=== PATIENT | male | born 1945 | race Caucasian/White ===

== ENCOUNTER 2017-06-08 08:39 | Inpatient (IN) | payer MEDICARE, MEDICAID ==
--- NOTE | 2017-06-08 09:40 | EDM.PDOC ---
ED HPI GENERAL MEDICAL PROBLEM - General Chief Complaint: Fever Stated Complaint: SHORT OF BREATH, LOW O2 SATS Time Seen by Provider: 06/08/17 09:20 Source of Information: Reports: Patient, EMS Notes Reviewed, Retirement Records History Limitations: Reports: No Limitations - History of Present Illness INITIAL COMMENTS - FREE TEXT/NARRATIVE: PATIENT IS A 72-YEAR-OLD GENTLEMAN WHO PRESENTS TO THE EMERGENCY DEPARTMENT THIS MORNING FROM NURSING FACILITY VIA EMS FOR COMPLAINT OF FEVER, HYPOXIA, AND ALTERED MENTAL STATUS. SYMPTOMS SAID TO HAVE BEGUN THIS MORNING, AND PATIENT FOUND TO HAVE OXYGEN SATURATION OF 83% ON 3 L NASAL CANNULA. Patient was found to have a fever of 100.3 at nursing facility. Patient denies chest pain, abdomen pain, nausea, vomiting, diarrhea, or headache. Has intermittent episodes of confusion, but then is able to reorient and comprehends person, place and time. Onset: Today Duration: Hour(s): Quality: Reports: Other (DENIES PAIN) Improves with: Reports: None Worsens with: Reports: None Associated Symptoms: Reports: Fever/Chills, Other (ALTERED MENTAL STATUS) - Related Data Allergies Allergy/AdvReac Type Severity Reaction Status Date / Time fluticasone propionate Allergy unknown Verified 01/04/16 16:47 [From Advair Diskus] rosuvastatin calcium Allergy unknown Verified 01/04/16 16:47 [From Crestor] salmeterol xinafoate Allergy unknown Verified 01/04/16 16:47 [From Advair Diskus] Home Meds: Home Meds Acetaminophen [Tylenol Extra Strength] 1,000 mg PO BID 05/28/13 [History] Albuterol/Ipratropium [DuoNeb 3.0-0.5 MG/3 ML] 3 ml INH BID 05/28/13 [History] Calcium/Vit B12/FA/Pyridoxine [Folic Acid-Vit B6-Vit B12 Tab] 1 each PO DAILY [History] Carvedilol [Coreg] 12.5 mg PO BID 05/28/13 [History] Cholecalciferol (Vitamin D3) [Vitamin D3] 1,000 unit PO DAILY 05/28/13 [History] Cinnamon Bark [Cinnamon] 1,000 mg PO ASDIRECTED 05/28/13 [History] Docusate Sodium [Colace] 100 mg PO BID 05/28/13 [History] Fluticasone Furoate [Veramyst] 2 spray NS DAILY 05/28/13 [History] Furosemide [Lasix] 20 mg PO DAILY 05/28/13 [History] Gabapentin [Neurontin] 300 mg PO TID 05/28/13 [History] Insulin Glarg,Human.Rec.Analog [Lantus] 90 unit SQ BEDTIME 05/28/13 [History] Isosorbide Dinitrate [Isordil] 10 mg PO BID 05/28/13 [History] Lisinopril 2.5 mg PO DAILY 05/28/13 [History] Magnesium Oxide 400 mg PO DAILY 05/28/13 [History] Nitroglycerin [Nitrostat] 0.4 mg SL ASDIRECTED PRN 05/28/13 [History] Omeprazole [Prilosec] 20 mg PO DAILY 05/28/13 [History] Sertraline [Zoloft] 200 mg PO DAILY 05/28/13 [History] SitaGLIPtin [Januvia] 100 mg PO DAILY 05/28/13 [History] traMADol [Ultram] 50 mg PO BID PRN 05/28/13 [History] [place]-3 Fatty Acids/Fish Oil [Cvs Fish Oil 1,000 mg Softgel] 2 tab PO BID [History] metFORMIN [Glucophage] 1,000 mg PO BIDMEALS 01/05/16 [History] Past Medical History HEENT History: Reports: Sinusitis Cardiovascular History: Reports: CAD, Heart Failure, High Cholesterol, Hypertension Respiratory History: Reports: None Genitourinary History: Reports: Other (See Below) Other Genitourinary History: diabetic neuropathy Musculoskeletal History: Reports: Arthritis Neurological History: Reports: Neuropathy, Diabetic Psychiatric History: Reports: Depression Endocrine/Metabolic History: Reports: Diabetes, Type II, Obesity/BMI 30+ Hematologic History: Reports: Anemia, Anticoagulation Therapy - Past Surgical History HEENT Surgical History: Reports: None Cardiovascular Surgical History: Reports: None Respiratory Surgical History: Reports: None Male Surgical History: Reports: None Neurological Surgical History: Reports: None Social & Family History - Family History Family Medical History: Noncontributory HEENT: Reports: None Cardiac: Reports: None Respiratory: Reports: None GI: Reports: None : Reports: None OBGYN: Reports: None Musculoskeletal: Reports: None Neurological: Reports: None Psychiatric: Reports: None Endocrine/Metabolic: Reports: None Hematologic: Reports: None Immunologic: Reports: None Dermatologic: Reports: None Oncologic: Reports: None - Tobacco Use Smoking Status *Q: Former Smoker Years of Tobacco use: 43 Packs/Tins Daily: 1.5 - Alcohol Use Days Per Week of Alcohol Use: 0 - Recreational Drug Use Recreational Drug Use: No ED ROS GENERAL - Review of Systems Review Of Systems: ROS reveals no pertinent complaints other than HPI. Constitutional: Reports: Fever HEENT: Reports: No Symptoms Respiratory: Reports: Cough Cardiovascular: Reports: No Symptoms Endocrine: Reports: No Symptoms GI/Abdominal: Reports: No Symptoms : Reports: No Symptoms Musculoskeletal: Reports: No Symptoms Skin: Reports: No Symptoms Neurological: Reports: Confusion Psychiatric: Reports: No Symptoms Hematologic/Lymphatic: Reports: No Symptoms Immunologic: Reports: No Symptoms ED EXAM, GENERAL - Physical Exam Exam: See Below Exam Limited By: Altered Mental Status General Appearance: Alert, WD/WN, No Apparent Distress Eye Exam: Bilateral Eye: Normal Inspection Nose: Normal Inspection, Normal Mucosa, No Blood Throat/Mouth: Normal Inspection, Normal Oropharynx, No Airway Compromise Head: Atraumatic, Normocephalic Neck: Normal Inspection, Supple Respiratory/Chest: No Respiratory Distress, Rales (Bibasilar) Cardiovascular: Regular Rate, Rhythm, No Murmur GI/Abdominal: Normal Bowel Sounds, Soft, Non-Tender, No Abnormal Bruit Back Exam: Normal Inspection. No: CVA Tenderness (L), CVA Tenderness (R) Extremities: Normal Inspection, No Pedal Edema Neurological: Confused Psychiatric: Normal Affect, Normal Mood Skin Exam: Warm, Dry, Intact, Normal Color, No Rash Lymphatic: No Adenopathy EKG INTERPRETATION EKG Date: 06/08/17 Time: 09:15 Rhythm: NSR Rate (Beats/Min): 89 [place]: Normal P-Wave: Present QRS: Normal ST-T: Other (Nonspecific) Comparison: Change From Previous EKG Course - Orders/Labs/Meds Orders: Active Orders 24 hr Category Date Time Status EKG Documentation Completion [RC] ASDIRECTED Care 06/08/17 09:21 Ordered Peripheral IV Care [RC] . DIRECTED Care 06/08/17 09:22 Ordered Chest 2V [CR] Stat Exams 06/08/17 09:20 Ordered CBC WITH AUTO DIFF [HEME] Stat Lab 06/08/17 09:20 Ordered COMPREHENSIVE METABOLIC PN,CMP [CHEM] Stat Lab 06/08/17 09:20 Ordered INFLUENZA A+B AG SCREEN [RM] Stat Lab 06/08/17 09:22 Ordered MAGNESIUM [CHEM] Stat Lab 06/08/17 09:20 Ordered TROPONIN I [CHEM] Stat Lab 06/08/17 09:20 Ordered UA W/MICROSCOPIC [URIN] Stat Lab 06/08/17 09:20 Ordered Sodium Chloride 0.9% [Syrex Flush] Med 06/08/17 09:22 Ordered 5 ml FLUSH Q8HR PRN Peripheral IV Insertion Adult [OM.PC] Routine Oth 06/08/17 09:22 Ordered EKG 12 Lead [EK] Routine Ther 06/08/17 09:20 Ordered Medication Orders Sodium Chloride (Syrex Flush) 5 ml FLUSH Q8HR PRN PRN Reason: Keep Vein Open Meds: Medications Generic Name Dose Route Start Last Admin Trade Name Freq PRN Reason Stop Dose Admin Sodium Chloride 5 ml 06/08/17 09:22 Syrex Flush FLUSH Q8HR PRN Keep Vein Open - Radiology Interpretation Free Text/Narrative:: Chest x-ray shows Right basilar infiltrate - Re-Assessments/Exams Free Text/Narrative Re-Assessment/Exam: 06/08/17 10:30 Patient patient afebrile, nontoxic appearing, intermittently confused, vital signs stable. Case discussed with Dr. Herrera and patient will be admitted and she will follow. Patient given initial dose of Levaquin for pneumonia. Elevated troponin has been addressed. Departure - Departure Time of Disposition: 10:31 Disposition: Admitted As Inpatient 64 Condition: Fair Clinical Impression: Elevated troponin, Hypoxia Pneumonia Qualifiers: Pneumonia type: due to unspecified organism Laterality: right Lung location: lower lobe of lung Qualified Code(s): J18.1 - Lobar pneumonia, unspecified organism - Discharge Information Referrals: Christy Brink MD [Primary Care Provider] - Forms: ED Department Discharge - My Orders Last 24 Hours: My Active Orders 06/08/17 09:20 Chest 2V [CR] Stat CBC WITH AUTO DIFF [HEME] Stat COMPREHENSIVE METABOLIC PN,CMP [CHEM] Stat MAGNESIUM [CHEM] Stat TROPONIN I [CHEM] Stat UA W/MICROSCOPIC [URIN] Stat EKG 12 Lead [EK] Routine 06/08/17 09:21 EKG Documentation Completion [RC] ASDIRECTED 06/08/17 09:22 Peripheral IV Care [RC] . DIRECTED INFLUENZA A+B AG SCREEN [RM] Stat Sodium Chloride 0.9% [Syrex Flush] 5 ml FLUSH Q8HR PRN Peripheral IV Insertion Adult [OM.PC] Routine - Assessment/Plan Last 24 Hours: My Active Orders 06/08/17 09:20 Chest 2V [CR] Stat CBC WITH AUTO DIFF [HEME] Stat COMPREHENSIVE METABOLIC PN,CMP [CHEM] Stat MAGNESIUM [CHEM] Stat TROPONIN I [CHEM] Stat UA W/MICROSCOPIC [URIN] Stat EKG 12 Lead [EK] Routine 06/08/17 09:21 EKG Documentation Completion [RC] ASDIRECTED 06/08/17 09:22 Peripheral IV Care [RC] . DIRECTED INFLUENZA A+B AG SCREEN [RM] Stat Sodium Chloride 0.9% [Syrex Flush] 5 ml FLUSH Q8HR PRN Peripheral IV Insertion Adult [OM.PC] Routine Assessment:: Pneumonia Plan: Admitted inpatient to Dr. Eduar narayan
[2017-06-08] MEDS ORDERED: Carvedilol 6.25 MG Tab PO ONE (10:11)
[2017-06-08] MEDS: Sodium Chloride 0.9% 5 ML Syringe FLUSH PRN (10:20)
[2017-06-08] MEDS ORDERED: Levofloxacin/Dextrose 5%-Water 500 MG in Premix Bag 1 BAG IV ONE (10:26)
[2017-06-08] MEDS ORDERED: Albuterol/Ipratropium 3.0-0.5 MG/3 ML Neb Soln INH PRN (13:13)
[2017-06-08] MEDS ORDERED: Nystatin Crm 15 GM Tube TOP PRN (13:13)
[2017-06-08] MEDS ORDERED: Nitroglycerin 0.4 MG Tab.SL SL PRN (13:13)
[2017-06-08] MEDS ORDERED: Docusate Sodium 100 MG Cap PO PRN (13:13)
[2017-06-08] MEDS ORDERED: Polyethylene Glycol 3350 Powder 17 GM Packet PO PRN (13:13)
[2017-06-08] MEDS ORDERED: traMADol 50 MG Tab PO PRN (13:13)
[2017-06-08] MEDS ORDERED: Nystatin Topical Powder 15 GM Bottle TOP PRN (13:45)
[2017-06-08] MEDS ORDERED: Saliva Substitute Oral Spray 120 ML Bottle MUCMEM PRN (13:45)
[2017-06-08] MEDS ORDERED: Trolamine Salicylate/Aloe Vera 10% Crm 85 GM Tube TOP PRN (13:45)
[2017-06-08] MEDS ORDERED: Sodium Chloride 0.9% 1,000 ML IV SCH ×2 (14:00→14:15)
[2017-06-08] MEDS: Gabapentin 300 MG Cap PO SCH ×2 (14:01→21:38)
[2017-06-08] MEDS: Tamsulosin 0.4 MG Cap.ER PO SCH (14:01)
[2017-06-08] MEDS: Aspirin 81 MG Tab.Chew PO SCH (14:02)
[2017-06-08] MEDS: Finasteride 5 MG Tab PO SCH (14:02)
--- NOTE | 2017-06-08 17:14 | PCM.HP ---
H&P History of Present Illness - General Date of Service: 06/08/17 Admit Problem/Dx: Admission Diagnosis/Problem Admission Diagnosis/Problem Pneumonia Source of Information: Patient, [facility] Records, Old Records, Provider (ED Provider Benny Parish PA-C), Other (TREVOR Campos) - History of Present Illness Initial Comments - Free Text/Narative: Mr. Elias is a resident of [facility] in [place], [place], and was reportedly in his usual state of health until 1-2 days ago when he developed a cough. On the morning of admission, I was called by facility nursing staff reporting that he had oxygen saturations in the low 80s despite an increase in his baseline oxygen of 2L to 4L. He didn't improve with nebulizer treatment and continued to be hypoxic and with increased work of breathing. He was transported by EMS to the [facility] ED where he was evaluated and noted to have 6L oxygen requirement in order to maintain saturations above 90%. Workup was notable for neutrophilia, elevated troponin at 0.24, CXR showing early R base pneumonia, and EKG without acute changes. Upon arrival on the floor, he reports feeling mildly short of breath but with better breathing than earlier. He states he is quite tired, but denies any other complaints including any chest pain or palpitations. He is unsure if his cough has been productive. He believes he has been eating and drinking without difficulty. History limited by patient's mental status. - Related Data Allergies/Adverse Reactions: Allergies Allergy/AdvReac Type Severity Reaction Status Date / Time fluticasone propionate Allergy unknown Verified 06/08/17 10:38 [From Advair Diskus] rosuvastatin calcium Allergy unknown Verified 06/08/17 10:38 [From Crestor] salmeterol xinafoate Allergy unknown Verified 06/08/17 10:38 [From Advair Diskus] Ycrpnkt-Wyr-Agr Reductase Allergy Other Verified 06/08/17 10:39 Inhibitor Home Medications: Home Meds Acetaminophen [Tylenol Extra Strength] 1,000 mg PO BID 05/28/13 [History] Albuterol/Ipratropium [DuoNeb 3.0-0.5 MG/3 ML] 3 ml INH BID PRN 05/28/13 [ History] Carvedilol [Coreg] 12.5 mg PO BID 05/28/13 [History] Docusate Sodium [Colace] 100 mg PO BID PRN 05/28/13 [History] Furosemide [Lasix] 40 mg PO DAILY 05/28/13 [History] Gabapentin [Neurontin] 600 mg PO TID 05/28/13 [History] Insulin Glarg,Human.Rec.Analog [Lantus] 52 unit SQ BEDTIME 05/28/13 [History] Nitroglycerin [Nitrostat] 0.4 mg SL ASDIRECTED PRN 05/28/13 [History] Omeprazole [Prilosec] 20 mg PO DAILY 05/28/13 [History] Sertraline [Zoloft] 150 mg PO BEDTIME 05/28/13 [History] traMADol [Ultram] 50 mg PO BID PRN 05/28/13 [History] [place]-3 Fatty Acids/Fish Oil [Cvs Fish Oil 1,000 mg Softgel] 1 tab PO DAILY [History] metFORMIN [Glucophage] 1,000 mg PO BIDMEALS 01/05/16 [History] Aspirin 81 mg PO DAILY 06/08/17 [History] Finasteride [Finasteride] 5 mg PO DAILY 06/08/17 [History] Insulin Aspart [NovoLOG] 13 unit SUBCUT WITHMEALSANDBED 06/08/17 [History] Iron Ps Cmplx/Vit B12/Fa [Poly-Iron 150 Forte] 1 each PO DAILY 06/08/17 [History ] Menthol [Cough Drops] 2.7 mg MM BID PRN 06/08/17 [History] Multivits,Ca,Minerals/Iron/FA [Thera-Tabs M Cap[place]] 1 each PO DAILY 06/08/17 [ History] Nystatin 1 each TOP BID PRN 06/08/17 [History] Nystatin [Nystatin Crm] 1 applic TOP BID PRN 06/08/17 [History] Polyethylene Glycol 3350 [MiraLAX] 17 gm PO DAILY PRN 06/08/17 [History] Saliva Stimulant Agents Comb.4 [Dry Mouth] 2 spray PO BID PRN 06/08/17 [History] Simethicone 160 mg PO TIDPC 06/08/17 [History] Tamsulosin [Tamsulosin 24 Hr] 0.4 mg PO DAILY 06/08/17 [History] Trolamine Salicylate/Aloe Vera [Aspercreme 10% Cream] 1 applic TOP BID PRN 06/08 [History] Past Medical History HEENT History: Reports: Sinusitis Cardiovascular History: Reports: CAD, Heart Failure, High Cholesterol, Hypertension Respiratory History: Reports: None Genitourinary History: Reports: Other (See Below) Other Genitourinary History: diabetic neuropathy Musculoskeletal History: Reports: Arthritis Neurological History: Reports: Neuropathy, Diabetic Psychiatric History: Reports: Depression Endocrine/Metabolic History: Reports: Diabetes, Type II, Obesity/BMI 30+ Hematologic History: Reports: Anemia, Anticoagulation Therapy Dermatologic History: Reports: Other (See Below) Other Dermatologic History: dry patches on elbows - Past Surgical History HEENT Surgical History: Reports: None Cardiovascular Surgical History: Reports: None Respiratory Surgical History: Reports: None Male Surgical History: Reports: None Neurological Surgical History: Reports: None Social & Family History - Family History Family Medical History: Noncontributory HEENT: Reports: None Cardiac: Reports: None Respiratory: Reports: None GI: Reports: None : Reports: None OBGYN: Reports: None Musculoskeletal: Reports: None Neurological: Reports: None Psychiatric: Reports: None Endocrine/Metabolic: Reports: None Hematologic: Reports: None Immunologic: Reports: None Dermatologic: Reports: None Oncologic: Reports: None - Tobacco Use Smoking Status *Q: Former Smoker Years of Tobacco use: 43 Packs/Tins Daily: 1.5 Used Tobacco, but Quit: Yes Month Tobacco Last Used: unable to obtain Second Hand Smoke Exposure: No - Caffeine Use Caffeine Use: Reports: Soda - Alcohol Use Days Per Week of Alcohol Use: 0 - Recreational Drug Use Recreational Drug Use: No H&P Review of Systems - Review of Systems: Review Of Systems: See Below Free Text/Narrative: Limited by patient's mental status and memory. General: Reports: Fever, Fatigue. Denies: Decreased Appetite HEENT: Denies: Rhinitis, Sore Throat Pulmonary: Reports: Shortness of Breath, Cough Cardiovascular: Denies: Chest Pain, Palpitations Gastrointestinal: Denies: Abdominal Pain, Constipation, Diarrhea Genitourinary: Denies: Dysuria Musculoskeletal: Reports: No Symptoms Skin: Denies: Rash Psychiatric: Reports: Confusion Neurological: Denies: Headache Hematologic/Lymphatic: Reports: Easy Bleeding, Easy Bruising Exam - Exam Exam: See Below - Vital Signs Vital Signs: Last Vital Signs Temp 37.4 C 06/08/17 14:14 Pulse 82 06/08/17 14:17 Resp 24 H 06/08/17 14:14 BP 148/67 H 06/08/17 14:14 Pulse Ox 92 L 06/08/17 16:00 Weight: 104.508 kg - Exam Physical Exam Comments:: GENERAL: Elderly male lying in hospital bed with mild tachypnea, but no other acute distress. HEENT: Normocephalic, atraumatic. Conjunctiva clear, pupils equal round and reactive to light, extraocular movements intact. Nares patent without discharge. Mucous membranes slightly dry, posterior pharynx unremarkable. NECK: Supple, no masses. CV: Regular rate and rhythm, no murmurs, rubs, or gallops. 2+ radial pulses. PULMONARY: Mild tachypnea, R base with rhonchi, mild diffuse expiratory wheezes , no rales. ABDOMEN: Positive bowel sounds, soft, nontender, nondistended. EXTREMITIES: No edema, cyanosis, or clubbing. MUSCULOSKELETAL: Moves all extremities well. NEUROLOGICAL: No obvious deficits. DERMATOLOGIC: No rashes or suspicious lesions in exposed areas. PSYCHIATRIC: Alert, oriented to person but not place or time, mildly confused intermittently during interview. - Patient Data Lab Results Last 24 hrs: Laboratory Results - last 24 hr 06/08/17 Range/Units 15:10 Troponin I 0.36 H* (0.00-0.070) ng/mL Result Diagrams: 06/08/17 08:55 06/08/17 08:55 EKG INTERPRETATION EKG Interpretation Comments: NSR with low voltage, normal intervals, no ST-segment changes on my independent interpretation. *Q Meaningful Use (ADM) - VTE *Q VTE Criteria *Q: - Stroke *Q Stroke Criteria *Q: - AMI *Q AMI Criteria *Q: Problem List Initiated/Reviewed/Updated: Yes Orders Last 24hrs: Active Orders 24 hr Category Date Time Status Blood Glucose Check, Bedside [RC] QIDACANDBED Care 06/08/17 13:11 Active Height and Weight [RC] 0700 Care 06/08/17 12:19 Active Intake and Output [RC] 1400,2200,0600 Care 06/08/17 12:23 Active Pneumonia Education [RC] Click to Edit Care 06/08/17 12:21 Active Pulse Oximetry [RC] 0300,0700,1100,1500,1900,2300 Care 06/08/17 12:23 Active Up With Assistance [RC] ASDIRECTED Care 06/08/17 12:19 Active Heart Healthy Diet [DIET] Diet 06/08/17 Lunch Active BASIC METABOLIC PANEL,BMP [CHEM] AM Lab 06/09/17 05:11 Ordered CBC WITH AUTO DIFF [HEME] AM Lab 06/09/17 05:11 Ordered CULTURE SPUTUM + SMEAR [RM] Urgent Lab 06/08/17 12:19 Ordered TROPONIN I [CHEM] Timed Lab 06/08/17 21:00 Ordered Acetaminophen [Tylenol Extra Strength] Med 06/08/17 21:00 Active 1,000 mg PO BID Albuterol/Ipratropium [DuoNeb 3.0-0.5 MG/3 ML] Med 06/08/17 13:13 Active 3 ml INH Q4HRRT PRN Aspirin Med 06/08/17 13:15 Active 81 mg PO DAILY Carboxymethylcellulose/Lytes [Francisco-Stir Oral [place]] Med 06/08/17 13:45 Active 0 ml MUCMEM BID PRN Carvedilol [Coreg] Med 06/08/17 21:00 Active 12.5 mg PO BID Docusate Sodium [Colace] Med 06/08/17 13:13 Active 100 mg PO BID PRN FA/Lycopene/Lut/MV,Ca,Iron,Min [Centrum] Med 06/09/17 09:00 Active 1 tab PO DAILY Finasteride [Proscar] Med 06/08/17 13:15 Active 5 mg PO DAILY Furosemide [Lasix] Med 06/09/17 09:00 Active 40 mg PO DAILY Gabapentin [Neurontin] Med 06/08/17 14:00 Active 600 mg PO TID Insulin Aspart [NovoLOG] Med 06/08/17 18:00 Active See Protocol SUBCUT WITHMEALSANDBED Insulin Detemir [Levemir] Med 06/08/17 21:00 Active 52 unit SUBCUT BEDTIME Iron Aspgly&PS/B12/C/Ca/FA/Suc [Niferex-150 Forte] Med 06/09/17 09:00 Active 1 cap PO DAILY Levofloxacin/Dextrose 5%-Water [Levaquin in D5W 500 MG/ Med 06/09/17 11:00 Active 100 ML] 500 mg Premix Bag 1 bag IV Q24H Nitroglycerin [Nitrostat] Med 06/08/17 13:13 Active 0.4 mg SL ASDIRECTED PRN Nystatin [Nystatin Crm] Med 06/08/17 13:13 Active 0 gm TOP BID PRN Nystatin [Nystop] Med 06/08/17 13:45 Active 0 gm TOP BID PRN Omeprazole Med 06/09/17 07:30 Active 20 mg PO ACBREAKFAST Polyethylene Glycol 3350 [MiraLAX] Med 06/08/17 13:13 Active 17 gm PO DAILY PRN Sertraline [Zoloft] Med 06/09/17 21:00 Active 150 mg PO BEDTIME Simethicone Med 06/08/17 19:00 Active 160 mg PO TIDPC Sodium Chloride 0.9% [Normal Saline] 1,000 ml Med 06/08/17 14:15 Active IV ASDIRECTED Tamsulosin [Flomax] Med 06/08/17 13:15 Active 0.4 mg PO DAILY Trolamine Salicylate/Aloe Vera [Aspercreme 10%] Med 06/08/17 13:45 Active 0 gm TOP BID PRN traMADol [Ultram] Med 06/08/17 13:13 Active 50 mg PO BID PRN Medication Orders Acetaminophen (Tylenol Extra Strength) 1,000 mg PO BID [facility] Albuterol/Ipratropium (Duoneb 3.0-0.5 Mg/3 Ml) 3 ml INH Q4HRRT PRN PRN Reason: Constipation Last Admin: 06/08/17 14:05 Dose: 3 ml Aspirin (Aspirin) 81 mg PO DAILY [facility] Last Admin: 06/08/17 14:02 Dose: 81 mg Carvedilol (Coreg) 12.5 mg PO BID [facility] Docusate Sodium (Colace) 100 mg PO BID PRN PRN Reason: Constipation Finasteride (Proscar) 5 mg PO DAILY [facility] Last Admin: 06/08/17 14:02 Dose: 5 mg Furosemide (Lasix) 40 mg PO DAILY [facility] Gabapentin (Neurontin) 600 mg PO TID [facility] Last Admin: 06/08/17 14:01 Dose: 600 mg Levofloxacin/Dextrose 500 mg/ (Premix) 100 mls @ 100 mls/hr IV Q24H [facility] Sodium Chloride (Normal Saline) 1,000 mls @ 125 mls/hr IV ASDIRECTED [facility] Last Admin: 06/08/17 14:21 Dose: 125 mls/hr Insulin Aspart (Novolog) 0 unit SUBCUT WITHMEALSANDBED N[facility]SA PRN Reason: Protocol Insulin Detemir (Levemir) 52 unit SUBCUT BEDTIME [facility] Multivitamins/Minerals (Centrum) 1 tab PO DAILY [facility] Nitroglycerin (Nitrostat) 0.4 mg SL ASDIRECTED PRN PRN Reason: Chest Pain Nystatin (Nystatin Crm) 0 gm TOP BID PRN PRN Reason: Rash Nystatin (Nystop) 0 gm TOP BID PRN PRN Reason: RASH Last Admin: 06/08/17 13:53 Dose: 1 applic Omeprazole (Omeprazole) 20 mg PO ACBREAKFAST [facility] Polyethylene Glycol (Miralax) 17 gm PO DAILY PRN PRN Reason: Constipation Polysaccharide Iron Compl/Vitamins (Niferex-150 Forte) 1 cap PO DAILY [facility] Saliva Substitute (Francisco-Stir Oral [place]) 0 ml MUCMEM BID PRN PRN Reason: dry mouth Sertraline HCl (Zoloft) 150 mg PO BEDTIME [facility] Simethicone (Simethicone) 160 mg PO TIDPC [facility] Sodium Chloride (Syrex Flush) 5 ml FLUSH Q8HR PRN PRN Reason: Keep Vein Open Last Admin: 06/08/17 10:20 Dose: 5 ml Tamsulosin HCl (Flomax) 0.4 mg PO DAILY [facility] Last Admin: 06/08/17 14:01 Dose: 0.4 mg Tramadol HCl (Ultram) 50 mg PO BID PRN PRN Reason: moderate pain Trolamine Salicylate (Aspercreme 10%) 0 gm TOP BID PRN PRN Reason: PAIN Last Admin: 06/08/17 13:57 Dose: 1 applic Assessment/Plan Comment:: Mr. Elias is a 72yoM with history notable for un-revascularized CAD, HFrEF, pHTN, HTN, chronic hypoxic respiratory failure, and chronic thrombocytopenia with 1-2 days of respiratory symptoms with recent worsening oxygenation. ED work -up notable for 6L oxygen requirement in order to maintain saturations above 90% , neutrophilia, elevated troponin at 0.24, CXR showing early R base pneumonia, and EKG without acute changes. Hospitalization problems: # Acute on chronic hypoxic respiratory failure # Pneumonia, health-care associated # Neutrophilia # Elevated troponin # Hypomagnesiumemia # Coronary artery disease, un-revascularized # Ischemic cardiomyopathy # Heart failure with reduced ejection fraction: 12/2016 echo with EF 40-45% and regional wall motion abnormalities suggestive of prior VA. # Pulmonary hypertension # Hypertension # Chronic thrombocytopenia Acute on chronic hypoxic respiratory failure likely secondary to pneumonia. Elevated troponin is likely multifactorial secondary to demand ischemia in setting of acute infection as well as un-revascularized CAD, HFrEF, and pHTN. There is extensive prior documentation from PCP, cardiology, and prior hospitalizations regarding his refusal of revascularization due to bleeding concerns related to his chronic thrombocytopenia; He states that he wouldn't want any procedures completed and per nursing, POA also concurred with this. Initial BP elevated, but improved on recheck after receiving his morning carvedilol. - Oxygen to maintain saturations >90% - DuoNebs q4h prn wheezing - Levofloxacin given health-care associated status - Trend troponin q6h - Cardiac monitoring - Magnesium replacement and recheck tomorrow - Continue outpatient ASA, furosemide, and carvedilol - Consider initiation of ACEI given ischemic cardiomyopathy Other chronic conditions: # GERD: Omeprazole. # CKD, stage 3: Stable. # BPH: Flomax, Proscar. # Iron deficiency anemia: Stable. Fe. # DMT2: Hold outpatient metformin. Lantus. Insulin sliding scale with meals and bedtime. # OA: Tylenol, tramadol, topical trolamine. # Neuropathy: Gabapentin. # Depression: Sertraline. # Yeast intertrigo: Topical nystatin. Hospitalization details: # FEN: Gentle IVF with NS at 125cc/hr for 1L. Electrolytes with mildly low magnesium, as above; recheck tomorrow. Cardiac diet. # PPX: DVT ppx with SCDs given thrombocytopenia and longstanding documentation and request to avoid any increased risk of bleeding. # Code status: DNR/DNI. # Emergency contact: [facility] Filippo Campos, who was updated by nursing. # Disposition: Admit to inpatient for management as above. Anticipate discharge to SNF once clinically improved.
[2017-06-08] MEDS: Insulin Aspart 100 Units/ML 3 ML Pen SUBCUT SCH ×2 (18:00→21:41)
[2017-06-08] MEDS: Magnesium Oxide 500 MG Tab PO SCH (18:32)
[2017-06-08] MEDS: Simethicone 80 MG Tab.Chew PO SCH (18:32)
[2017-06-08] MEDS: Acetaminophen 500 MG Tab PO SCH (21:37)
[2017-06-08] MEDS: Carvedilol 12.5 MG Tab PO SCH (21:38)
[2017-06-08] MEDS: Insulin Detemir 100 Units/ML 3 ML Pen SUBCUT SCH (21:39)
[2017-06-09] MEDS: Omeprazole 20 MG Cap.CR PO SCH (07:52)
[2017-06-09] MEDS: Insulin Aspart 100 Units/ML 3 ML Pen SUBCUT SCH ×4 (07:54→21:19)
[2017-06-09] MEDS: [UNRECOGNIZED DRUG - OTHER] PO SCH (09:00)
[2017-06-09] MEDS: Acetaminophen 500 MG Tab PO SCH ×2 (09:00→21:18)
[2017-06-09] MEDS: Gabapentin 300 MG Cap PO SCH ×3 (09:00→21:18)
[2017-06-09] MEDS: Tamsulosin 0.4 MG Cap.ER PO SCH (09:00)
[2017-06-09] MEDS: Aspirin 81 MG Tab.Chew PO SCH (09:00)
[2017-06-09] MEDS: Multivitamins with Minerals/Iron/Folic Acid/Lycopene Tab PO SCH (09:00)
[2017-06-09] MEDS: Simethicone 80 MG Tab.Chew PO SCH ×3 (09:00→18:44)
[2017-06-09] MEDS: Finasteride 5 MG Tab PO SCH (09:00)
[2017-06-09] MEDS: Magnesium Oxide 500 MG Tab PO SCH (09:01)
[2017-06-09] MEDS: Furosemide 40 MG Tab PO SCH (09:01)
[2017-06-09] MEDS: Carvedilol 12.5 MG Tab PO SCH ×2 (09:01→18:14)
[2017-06-09] MEDS: Sodium Chloride 0.9% 5 ML Syringe FLUSH PRN (10:38)
[2017-06-09] MEDS ORDERED: Levofloxacin/Dextrose 5%-Water 500 MG in Premix Bag 1 BAG IV SCH (11:00)
--- NOTE | 2017-06-09 11:28 | PCM.PN ---
- General Info Date of Service: 06/09/17 Subjective Update: Mr. Elias reports feeling much better today. States he hardly remembers what even went on yesterday because he didn't feel well. Much improved shortness of breath and cough. Denies any chest pain or palpitations. Ate breakfast without difficulty. No new concerns. No nursing concerns. - Patient Data Vitals - Most Recent: Last Vital Signs Temp 36.6 C 06/09/17 06:46 Pulse 73 06/09/17 09:01 Resp 20 06/09/17 06:46 BP 139/63 06/09/17 09:01 Pulse Ox 91 L 06/09/17 07:15 Weight - Most Recent: 105.143 kg I&O - Last 24 Hours: Intake & Output 06/08/17 06/09/17 06/09/17 22:59 06:59 14:59 Intake Total 1089 100 Balance 1089 100 Lab Results Last 24 Hours: Laboratory Results - last 24 hr 06/08/17 06/08/17 06/08/17 Range/Units 15:10 17:37 21:08 WBC (5.0-10.0) 10^3/uL RBC (4.50-6.00) 10^6/uL Hgb (13.0-17.0) g/dL Hct (40.0-52.0) % MCV (82.0-92.0) fL MCH (27.0-31.0) pg MCHC (32.0-36.0) g/dL RDW (11.5-14.5) % Plt Count (150-300) 10^3/uL MPV (7.4-10.4) fL Neut % (Auto) (50.0-70.0) % Lymph % (Auto) (20.0-40.0) % Sandoval % (Auto) (2.0-8.0) % Eos % (Auto) (1.0-3.0) % Baso % (Auto) (0.0-1.0) % Neut # (Auto) (2.5-7.0) 10^3/uL Lymph # (Auto) (1.0-4.0) 10^3/uL Sandoval # (Auto) (0.1-0.8) 10^3/uL Eos # (Auto) (0.1-0.3) 10^3/uL Baso # (Auto) (0.0-0.1) 10^3/uL Sodium (136-145) mmol/L Potassium (3.3-5.3) mmol/L Chloride (98-115) mmol/L Carbon Dioxide (21.0-32.0) mmol/L BUN (6-25) mg/dL Creatinine (0.51-1.17) mg/dL Est Cr Clr Drug Dosing mL/min Estimated GFR (MDRD) mL/min Glucose (70-110) mg/dL POC Glucose 234 H (74-106) mg/dl Calcium (8.7-10.3) mg/dL Magnesium (1.8-2.4) mg/dL Troponin I 0.36 H* 0.36 H* (0.00-0.070) ng/mL 06/08/17 06/09/17 06/09/17 Range/Units 21:14 00:37 05:53 WBC (5.0-10.0) 10^3/uL RBC (4.50-6.00) 10^6/uL Hgb (13.0-17.0) g/dL Hct (40.0-52.0) % MCV (82.0-92.0) fL MCH (27.0-31.0) pg MCHC (32.0-36.0) g/dL RDW (11.5-14.5) % Plt Count (150-300) 10^3/uL MPV (7.4-10.4) fL Neut % (Auto) (50.0-70.0) % Lymph % (Auto) (20.0-40.0) % Sandoval % (Auto) (2.0-8.0) % Eos % (Auto) (1.0-3.0) % Baso % (Auto) (0.0-1.0) % Neut # (Auto) (2.5-7.0) 10^3/uL Lymph # (Auto) (1.0-4.0) 10^3/uL Sandoval # (Auto) (0.1-0.8) 10^3/uL Eos # (Auto) (0.1-0.3) 10^3/uL Baso # (Auto) (0.0-0.1) 10^3/uL Sodium (136-145) mmol/L Potassium (3.3-5.3) mmol/L Chloride (98-115) mmol/L Carbon Dioxide (21.0-32.0) mmol/L BUN (6-25) mg/dL Creatinine (0.51-1.17) mg/dL Est Cr Clr Drug Dosing mL/min Estimated GFR (MDRD) mL/min Glucose (70-110) mg/dL POC Glucose 191 H 137 H 137 H (74-106) mg/dl Calcium (8.7-10.3) mg/dL Magnesium (1.8-2.4) mg/dL Troponin I (0.00-0.070) ng/mL 06/09/17 06/09/17 Range/Units 07:05 07:05 WBC 6.6 (5.0-10.0) 10^3/uL RBC 4.10 L (4.50-6.00) 10^6/uL Hgb 10.8 L (13.0-17.0) g/dL Hct 33.8 L (40.0-52.0) % MCV 82.4 (82.0-92.0) fL MCH 26.4 L (27.0-31.0) pg MCHC 32.1 (32.0-36.0) g/dL RDW 17.0 H (11.5-14.5) % Plt Count 124 L (150-300) 10^3/uL MPV 6.6 L (7.4-10.4) fL Neut % (Auto) 73.0 H (50.0-70.0) % Lymph % (Auto) 14.6 L (20.0-40.0) % Sandoval % (Auto) 8.6 H (2.0-8.0) % Eos % (Auto) 3.3 H (1.0-3.0) % Baso % (Auto) 0.5 (0.0-1.0) % Neut # (Auto) 4.8 (2.5-7.0) 10^3/uL Lymph # (Auto) 1.0 (1.0-4.0) 10^3/uL Sandoval # (Auto) 0.6 (0.1-0.8) 10^3/uL Eos # (Auto) 0.2 (0.1-0.3) 10^3/uL Baso # (Auto) 0.0 (0.0-0.1) 10^3/uL Sodium 141 (136-145) mmol/L Potassium 4.1 (3.3-5.3) mmol/L Chloride 102 (98-115) mmol/L Carbon Dioxide 31.6 (21.0-32.0) mmol/L BUN 42 H (6-25) mg/dL Creatinine 1.38 H (0.51-1.17) mg/dL Est Cr Clr Drug Dosing 45.43 mL/min Estimated GFR (MDRD) 50 mL/min Glucose 154 H (70-110) mg/dL POC Glucose (74-106) mg/dl Calcium 8.7 (8.7-10.3) mg/dL Magnesium 2.0 (1.8-2.4) mg/dL Troponin I 0.29 H* (0.00-0.070) ng/mL Med Orders - Current: Current Medications Acetaminophen (Tylenol Extra Strength) 1,000 mg PO BID [facility] Last Admin: 06/09/17 09:00 Dose: 1,000 mg Albuterol/Ipratropium (Duoneb 3.0-0.5 Mg/3 Ml) 3 ml INH Q4HRRT PRN PRN Reason: Constipation Last Admin: 06/08/17 14:05 Dose: 3 ml Aspirin (Aspirin) 81 mg PO DAILY [facility] Last Admin: 06/09/17 09:00 Dose: 81 mg Carvedilol (Coreg) 12.5 mg PO BIDMEALS [facility] Docusate Sodium (Colace) 100 mg PO BID PRN PRN Reason: Constipation Finasteride (Proscar) 5 mg PO DAILY [facility] Last Admin: 06/09/17 09:00 Dose: 5 mg Furosemide (Lasix) 40 mg PO DAILY [facility] Last Admin: 06/09/17 09:01 Dose: 40 mg Gabapentin (Neurontin) 600 mg PO TID [facility] Last Admin: 06/09/17 09:00 Dose: 600 mg Levofloxacin/Dextrose 500 mg/ (Premix) 100 mls @ 100 mls/hr IV Q24H [facility] Last Admin: 06/09/17 10:34 Dose: 100 mls/hr Sodium Chloride (Normal Saline) 50 mls @ 20 mls/hr IV DAILY@1100 [facility] Insulin Aspart (Novolog) 0 unit SUBCUT WITHMEALSANDBED [facility] PRN Reason: Protocol Last Admin: 06/09/17 07:54 Dose: Not Given Insulin Detemir (Levemir) 52 unit SUBCUT BEDTIME [facility] Last Admin: 06/08/17 21:39 Dose: 52 units Magnesium Oxide (Magnesium Oxide) 500 mg PO DAILY [facility] Stop: 06/09/17 18:01 Last Admin: 06/09/17 09:01 Dose: 500 mg Multivitamins/Minerals (Centrum) 1 tab PO DAILY [facility] Last Admin: 06/09/17 09:00 Dose: 1 tab Nitroglycerin (Nitrostat) 0.4 mg SL ASDIRECTED PRN PRN Reason: Chest Pain Nystatin (Nystatin Crm) 0 gm TOP BID PRN PRN Reason: Rash Nystatin (Nystop) 0 gm TOP BID PRN PRN Reason: RASH Last Admin: 06/08/17 13:53 Dose: 1 applic Omeprazole (Omeprazole) 20 mg PO ACBREAKFAST [facility] Last Admin: 06/09/17 07:52 Dose: 20 mg Polyethylene Glycol (Miralax) 17 gm PO DAILY PRN PRN Reason: Constipation Polysaccharide Iron Compl/Vitamins (Niferex-150 Forte) 1 cap PO DAILY [facility] Last Admin: 06/09/17 09:00 Dose: 1 cap Saliva Substitute (Francisco-Stir Oral Monroe) 0 ml MUCMEM BID PRN PRN Reason: dry mouth Sertraline HCl (Zoloft) 150 mg PO BEDTIME [facility] Simethicone (Simethicone) 160 mg PO TIDPC [facility] Last Admin: 06/09/17 09:00 Dose: 160 mg Sodium Chloride (Syrex Flush) 5 ml FLUSH Q8HR PRN PRN Reason: Keep Vein Open Last Admin: 06/09/17 10:38 Dose: 5 ml Tamsulosin HCl (Flomax) 0.4 mg PO DAILY [facility] Last Admin: 06/09/17 09:00 Dose: 0.4 mg Tramadol HCl (Ultram) 50 mg PO BID PRN PRN Reason: moderate pain Trolamine Salicylate (Aspercreme 10%) 0 gm TOP BID PRN PRN Reason: PAIN Last Admin: 06/08/17 13:57 Dose: 1 applic Discontinued Medications Carvedilol (Coreg) 6.25 mg PO ONETIME ONE Stop: 06/08/17 10:12 Last Admin: 06/08/17 10:17 Dose: 6.25 mg Carvedilol (Coreg) 12.5 mg PO BID [facility] Last Admin: 06/09/17 09:01 Dose: 12.5 mg Levofloxacin/Dextrose 500 mg/ (Premix) 100 mls @ 100 mls/hr IV ONETIME ONE Stop: 06/08/17 11:25 Last Admin: 06/08/17 10:52 Dose: 100 mls/hr Sodium Chloride (Normal Saline) 1,000 mls @ 125 mls/hr IV Q8HR [facility] Stop: 06/09/17 05:59 Last Admin: 06/08/17 14:32 Dose: Not Given Sodium Chloride (Normal Saline) 1,000 mls @ 125 mls/hr IV ASDIRECTED [facility] Stop: 06/08/17 22:16 Last Admin: 06/08/17 14:21 Dose: 125 mls/hr - Exam Physical Findings Comments:: GENERAL: Elderly male sitting in bedside chair in no acute distress. HEENT: Normocephalic, atraumatic. Conjunctiva clear. Mucous membranes moist. NECK: Supple, no masses. CV: Regular rate and rhythm, no murmurs, rubs, or gallops. 2+ radial pulses. PULMONARY: Mild tachypnea, R base with rhonchi, no wheezing or rales. ABDOMEN: Positive bowel sounds, soft, nontender, nondistended. EXTREMITIES: No edema, cyanosis, or clubbing. MUSCULOSKELETAL: Moves all extremities well. NEUROLOGICAL: No obvious deficits. DERMATOLOGIC: No rashes or suspicious lesions in exposed areas. PSYCHIATRIC: Alert, oriented x4, cantankerous affect. - Problem List Review Problem List Initiated/Reviewed/Updated: Yes - My Orders Last 24 Hours: My Active Orders 06/08/17 12:19 Height and Weight [RC] 0700 Up With Assistance [RC] DAILY CULTURE SPUTUM + SMEAR [RM] Urgent 06/08/17 12:23 Intake and Output [RC] Q8HR 06/08/17 13:11 Blood Glucose Check, Bedside [RC] 0700,1130,1730,2100 06/08/17 13:13 Albuterol/Ipratropium [DuoNeb 3.0-0.5 MG/3 ML] 3 ml INH Q4HRRT PRN Docusate Sodium [Colace] 100 mg PO BID PRN Nitroglycerin [Nitrostat] 0.4 mg SL ASDIRECTED PRN Nystatin [Nystatin Crm] 0 gm TOP BID PRN Polyethylene Glycol 3350 [MiraLAX] 17 gm PO DAILY PRN traMADol [Ultram] 50 mg PO BID PRN 06/08/17 13:15 Aspirin 81 mg PO DAILY Finasteride [Proscar] 5 mg PO DAILY Tamsulosin [Flomax] 0.4 mg PO DAILY 06/08/17 13:45 Carboxymethylcellulose/Lytes [Francisco-Stir Oral Monroe] 0 ml MUCMEM BID PRN Nystatin [Nystop] 0 gm TOP BID PRN Trolamine Salicylate/Aloe Vera [Aspercreme 10%] 0 gm TOP BID PRN 06/08/17 14:00 Gabapentin [Neurontin] 600 mg PO TID 06/08/17 18:00 Insulin Aspart [NovoLOG] See Protocol SUBCUT WITHMEALSANDBED Magnesium Oxide 500 mg PO DAILY 06/08/17 19:00 Simethicone 160 mg PO TIDPC 06/08/17 21:00 Acetaminophen [Tylenol Extra Strength] 1,000 mg PO BID Insulin Detemir [Levemir] 52 unit SUBCUT BEDTIME 06/08/17 Lunch Heart Healthy Diet [DIET] 06/09/17 07:30 Omeprazole 20 mg PO ACBREAKFAST 06/09/17 09:00 FA/Lycopene/Lut/MV,Ca,Iron,Min [Centrum] 1 tab PO DAILY Furosemide [Lasix] 40 mg PO DAILY Iron Aspgly&PS/B12/C/Ca/FA/Suc [Niferex-150 Forte] 1 cap PO DAILY 06/09/17 11:00 Levofloxacin/Dextrose 5%-Water [Levaquin in D5W 500 MG/100 ML] 500 mg Premix Bag 1 bag IV Q24H 06/09/17 18:00 Carvedilol [Coreg] 12.5 mg PO BIDMEALS 06/09/17 21:00 Sertraline [Zoloft] 150 mg PO BEDTIME 06/10/17 11:00 Sodium Chloride 0.9% [Normal Saline] 50 ml IV DAILY@1100 - Plan Plan:: Mr. Elias is a 72yoM with history notable for un-revascularized CAD, HFrEF, pHTN, HTN, chronic hypoxic respiratory failure, and chronic thrombocytopenia with 1-2 days of respiratory symptoms with recent worsening oxygenation. ED work -up notable for 6L oxygen requirement in order to maintain saturations above 90% , neutrophilia, elevated troponin at 0.24, CXR showing early R base pneumonia, and EKG without acute changes. Hospitalization problems: # Acute on chronic hypoxic respiratory failure: Improved # Pneumonia, health-care associated # Neutrophilia: Improved. # Elevated troponin: Peaked at 0.36. # Hypomagnesiumemia: Normalized. # Coronary artery disease, un-revascularized # Ischemic cardiomyopathy # Heart failure with reduced ejection fraction: 12/2016 echo with EF 40-45% and regional wall motion abnormalities suggestive of prior AR. # Pulmonary hypertension # Hypertension: Controlled. # Chronic thrombocytopenia: Stable. Improving respiratory status, now close to his baseline oxygen requirement of 2- 3L. Troponin peaked and etiology still favors components demand ischemia in setting of acute infection as well as un-revascularized CAD, HFrEF, and pHTN. - Wean oxygen to maintain saturations >90% - DuoNebs q4h prn wheezing - Continue levofloxacin, with plan to transition to po tomorrow - Continue outpatient ASA, furosemide, and carvedilol - Consider initiation of ACEI given ischemic cardiomyopathy Other chronic conditions: # GERD: Omeprazole. # CKD, stage 3: Stable. # BPH: Flomax, Proscar. # Iron deficiency anemia: Stable. Fe. # DMT2: Hold outpatient metformin. Lantus. Insulin sliding scale with meals and bedtime. # OA: Tylenol, tramadol, topical trolamine. # Neuropathy: Gabapentin. # Depression: Sertraline. # Yeast intertrigo: Topical nystatin. Hospitalization details: # FEN: Discontinue IVF. Electrolytes normalized; recheck tomorrow. Cardiac diet. # PPX: DVT ppx with SCDs given thrombocytopenia and longstanding documentation and request to avoid any increased risk of bleeding. # Code status: DNR/DNI. # Emergency contact: [facility] Filippo Campos, who was updated by nursing. # Disposition: Continue on inpatient. Anticipate discharge to SNF tomorrow pending ongoing improvement and stabilization of oxygen requirement.
[2017-06-09] MEDS ORDERED: Sertraline 50 MG Tab PO SCH (21:00)
[2017-06-09] MEDS: Insulin Detemir 100 Units/ML 3 ML Pen SUBCUT SCH (21:17)
[2017-06-10 06:52] VITALS: BP 117/58
[2017-06-10] MEDS: Omeprazole 20 MG Cap.CR PO SCH (07:32)
[2017-06-10] MEDS: Tamsulosin 0.4 MG Cap.ER PO SCH (08:04)
[2017-06-10] MEDS: Carvedilol 12.5 MG Tab PO SCH (08:05)
[2017-06-10] MEDS: Aspirin 81 MG Tab.Chew PO SCH (08:05)
[2017-06-10] MEDS: Multivitamins with Minerals/Iron/Folic Acid/Lycopene Tab PO SCH (08:05)
[2017-06-10] MEDS: [UNRECOGNIZED DRUG - OTHER] PO SCH (08:06)
[2017-06-10] MEDS: Gabapentin 300 MG Cap PO SCH (08:06)
[2017-06-10] MEDS: Acetaminophen 500 MG Tab PO SCH (08:06)
[2017-06-10] MEDS: Furosemide 40 MG Tab PO SCH (08:06)
[2017-06-10] MEDS: Finasteride 5 MG Tab PO SCH (08:06)
[2017-06-10] MEDS: Insulin Aspart 100 Units/ML 3 ML Pen SUBCUT SCH ×2 (08:07→12:09)
[2017-06-10] MEDS: Simethicone 80 MG Tab.Chew PO SCH (08:07)
[2017-06-10] MEDS ORDERED: Sodium Chloride 0.9% 50 ML IV SCH (11:00)
--- NOTE | 2017-06-11 08:12 | DISCH ---
FINAL DIAGNOSES: 1. Pneumonia HCA, POA (changed to oral antibiotics). 2. Acute on chronic respiratory failure, improved. 3. Neutrophilia, improved. 4. Elevated troponin, likely due to demand ischemia in the setting of inflammatory response. Troponin trending down. 5. Hypomagnesemia, normalized. 6. Coronary artery coronary, unrevascularized. 7. Ischemic cardiomyopathy. 8. HFrEF, ACEI initiated. 9. Pulmonary hypertension. 10.Hypertension which is controlled. 11.Chronic thrombocytopenia, stable. HISTORY: This 72-year-old resident of a alf facility in [place] was reportedly in his usual state of health 1 to 2 days prior to admission when he suddenly developed a cough with low oxygen saturations at 80% despite increasing his baseline of oxygen from 2 to 4 L, nebulizer treatments were started; however, he did not improve. He continued to be hypoxic with increase in dyspnea. Eventually, he was transported to the [facility] ED via EMS. In the ED, it was noted to him to have 6 L of oxygen requirement in order to maintain oxygen saturations above 90. Pertinent ED workups included notable neutrophilia, hypoxia, elevated troponin. Chest x-ray showed early right base pneumonia. EKG was without changes. HOSPITAL COURSE: Hospital course went well. He did have acute on chronic hypoxic respiratory failure. He did respond to DuoNeb and oxygen. Levofloxacin was initiated q.48 hours, he was discharged on oral. Cardiac monitoring did not show any sorts of reperfusion arrhythmias or ectopy. Troponin was trended, it was trending down. Magnesium had to be replaced. We did continue on aspirin, Lasix, and Coreg. His metformin was held. His insulin sliding scale was initiated. He was given gentle IV fluids with normal saline. Electrolytes were monitored due to mildly low magnesium that was normalized. He remained on a cardiac diet. DVT prophylaxis with SCDs were given. Due to his thrombocytopenia, all heparins were held. The patient was a DNR. LABORATORY DATA: White count on admission 6.6, on discharge 6.3 and neutrophilia 73% on admission, normal at 65 on discharge. Sodium 140; potassium 4.3; BUN 37; creatinine of 1.35, trending down; and glucose 158. Troponin trending down to 0.29. Magnesium normal at 2.0 and calcium 8.7. PHYSICAL EXAM ON DISCHARGE: VITAL SIGNS: Blood pressure 117/58. Previous to that, it was 150/70. JAMEY inhibitor for heart failure was initiated low dose on discharge. Respiratory rate 22. O2 sat is 93% that is on 3 L, 1 L above his baseline. Temperature 99.0, T-max in the hospital was 100.4 early on admission. GENERAL IMPRESSION: The patient was sitting in chair, eating breakfast, conversing, does not remember the events leading up to hospitalization. LUNGS: Clear to auscultation. CV: Regular rate and rhythm. NEUROLOGIC: He is oriented, however, slight dementia. EXTREMITIES: He has no edema in his lower extremities. THE patient has not complained of any chest pain. MICROBIOLOGY: Negative influenza A, negative influenza B. OTHER DIAGNOSTICS: Chest x-ray demonstrated pneumonia, right lung base. MEDICATIONS ADJUSTMENTS AND ADDITIONS ON DISCHARGE: 1. Levaquin 750 mg p.o. q.48 hours starting tomorrow, 06/11/2017 (newly added). 2. Lisinopril 5 mg p.o. daily (newly added for heart failure, target 30mg per day his goal). DISPOSITION: The patient will be discharged back to alf facility to [facility]. CONSIDERATIONS AT FOLLOWUP: Possible echocardiogram due to the patient may be candidate for Entresto. Titrate up JAMEY inhibitor to maximum tolerable levels ideal 30mg daily. /[id number]/MODL MTDD
[2017-06-11] MEDS ORDERED: Levofloxacin/Dextrose 5%-Water 100 ML IV SCH (11:00)
[2017-06-11] MEDS ORDERED: Levofloxacin/Dextrose 5%-Water 50 ML IV SCH (12:00)
== END 2017-06-10 12:40 | DRG 193 ==
LOC: KA.ED 08:39 → KA.MS 10:27
PROVIDERS: ADMIT Physician Assistant Surgical; ATTEND Family Medicine
DX: J18.1 Lobar pneumonia, unspecified organism (principal); J96.21 Acute and chronic respiratory failure with hypoxia; I50.20 Unspecified systolic (congestive) heart failure; R74.8 Abnormal levels of other serum enzymes; I25.10 Atherosclerotic heart disease of native coronary artery without angina pectoris; E78.00 Pure hypercholesterolemia, unspecified; I10 Essential (primary) hypertension; E11.40 Type 2 diabetes mellitus with diabetic neuropathy, unspecified; D72.0 Genetic anomalies of leukocytes; E83.42 Hypomagnesemia; D69.6 Thrombocytopenia, unspecified; I27.20 Pulmonary hypertension, unspecified; F32.9 Major depressive disorder, single episode, unspecified; Z87.891 Personal history of nicotine dependence; Z88.8 Allergy status to other drugs, medicaments and biological substances; Z79.899 Other long term (current) drug therapy; Z79.4 Long term (current) use of insulin
CPT/HCPCS: 36415; 71045; 80048; 80053; 81001; 82962; 83735; 83880; 84484; 85025; 87804; 93005; 94640; 99285; A9270-GY; J1815-GY; J1956; J7030

== ENCOUNTER 2017-10-08 09:05 | Emergency (ER) | payer MEDICARE, MEDICAID ==
--- NOTE | 2017-10-08 10:10 | EDM.PDOC ---
ED HPI GENERAL MEDICAL PROBLEM - General Chief Complaint: General Time Seen by Provider: 10/08/17 09:49 Source of Information: Reports: Patient, Detention Records History Limitations: Reports: Altered Mental Status (dementia) - History of Present Illness INITIAL COMMENTS - FREE TEXT/NARRATIVE: Patient brought from [place] via ambulance with report of fever, increased confusion and low oxygen sats. Reviewing [facility] record his highest temp was 100.8 which had dropped to 99.9 before transfer. He is on chronic O2 at 2 liters via nasal cannula. Sats on arrival were 97% on 3 liters. Patient has chronic urine incontinence so wears Depends. He says he had a little burning with urination this morning. He says he has had a cough for a couple weeks that is improving. Treatments [employer]: Reports: Oxygen - Related Data Allergies Allergy/AdvReac Type Severity Reaction Status Date / Time fluticasone propionate Allergy unknown Verified 10/08/17 09:26 [From Advair Diskus] rosuvastatin calcium Allergy unknown Verified 10/08/17 09:26 [From Crestor] salmeterol xinafoate Allergy unknown Verified 10/08/17 09:26 [From Advair Diskus] [id number] Reductase Allergy Other Verified 10/08/17 09:26 Inhibitor Home Meds: Home Meds Acetaminophen [Tylenol Extra Strength] 1,000 mg PO BID 05/28/13 [History] Albuterol/Ipratropium [DuoNeb 3.0-0.5 MG/3 ML] 3 ml INH BID PRN 05/28/13 [ History] Carvedilol [Coreg] 12.5 mg PO BID 05/28/13 [History] Docusate Sodium [Colace] 100 mg PO BID PRN 05/28/13 [History] Gabapentin [Neurontin] 600 mg PO TID 05/28/13 [History] Insulin Glarg,Human.Rec.Analog [Lantus] 52 unit SQ BEDTIME 05/28/13 [History] Omeprazole [Prilosec] 20 mg PO ACBREAKFAST 05/28/13 [History] Sertraline [Zoloft] 200 mg PO DAILY 05/28/13 [History] traMADol [Ultram] 50 mg PO BID PRN 05/28/13 [History] Finasteride 5 mg PO DAILY 06/08/17 [History] Insulin Aspart [NovoLOG] 13 unit SUBCUT WITHMEALSANDBED 06/08/17 [History] Iron Ps Cmplx/Vit B12/Fa [Poly-Iron 150 Forte] 1 each PO DAILY 06/08/17 [History ] Menthol [Cough Drops] 2.7 mg MM BID PRN 06/08/17 [History] Multivits,Ca,Minerals/Iron/FA [Thera-Tabs M Caplet] 1 each PO DAILY 06/08/17 [ History] Nystatin 1 applic TOP BID PRN 06/08/17 [History] Polyethylene Glycol 3350 [MiraLAX] 17 gm PO DAILY PRN 06/08/17 [History] Simethicone 160 mg PO TIDPC PRN 06/08/17 [History] Tamsulosin [Flomax] 0.4 mg PO BEDTIME 06/08/17 [History] Trolamine Salicylate/Aloe Vera [Aspercreme 10% Cream] 1 applic TOP BID PRN 06/08 [History] Aspirin [Halfprin] 81 mg PO DAILY 06/09/17 [History] Furosemide 40 mg PO DAILY 06/09/17 [History] [place]-3 Fatty Acids [[place]-3] 1,000 mg PO DAILY 06/09/17 [History] metFORMIN [Glucophage] 1,000 mg PO BIDMEALS 06/09/17 [History] Lisinopril [Prinivil] 5 mg PO DAILY #30 tab 06/10/17 [Rx] Past Medical History HEENT History: Reports: Sinusitis Cardiovascular History: Reports: CAD, Heart Failure, High Cholesterol, Hypertension Respiratory History: Reports: None Genitourinary History: Reports: Other (See Below) Other Genitourinary History: diabetic neuropathy Musculoskeletal History: Reports: Arthritis Neurological History: Reports: Neuropathy, Diabetic Psychiatric History: Reports: Depression Endocrine/Metabolic History: Reports: Diabetes, Type II, Obesity/BMI 30+ Hematologic History: Reports: Anemia, Anticoagulation Therapy Dermatologic History: Reports: Other (See Below) Other Dermatologic History: dry patches on elbows - Past Surgical History HEENT Surgical History: Reports: None Cardiovascular Surgical History: Reports: None Respiratory Surgical History: Reports: None Male Surgical History: Reports: None Neurological Surgical History: Reports: None Social & Family History - Family History Family Medical History: Noncontributory HEENT: Reports: None Cardiac: Reports: None Respiratory: Reports: None GI: Reports: None : Reports: None OBGYN: Reports: None Musculoskeletal: Reports: None Neurological: Reports: None Psychiatric: Reports: None Endocrine/Metabolic: Reports: None Hematologic: Reports: None Immunologic: Reports: None Dermatologic: Reports: None Oncologic: Reports: None - Tobacco Use Smoking Status *Q: Former Smoker Used Tobacco, but Quit: Yes Month/Year Tobacco Last Used: August Second Hand Smoke Exposure: No - Caffeine Use Caffeine Use: Reports: Coffee, Soda - Recreational Drug Use Recreational Drug Use: No ED ROS GENERAL - Review of Systems Review Of Systems: See Below Constitutional: Reports: Fever. Denies: Malaise, Weakness HEENT: Reports: No Symptoms. Denies: Ear Pain, Nosebleed, Throat Pain, Vision Change Respiratory: Reports: Cough. Denies: Shortness of Breath, Wheezing Cardiovascular: Denies: Chest Pain, Syncope GI/Abdominal: Reports: Constipation (sometimes but had normal stool this morning ). Denies: Abdominal Pain, Diarrhea, Nausea, Vomiting : Reports: Dysuria (this morning), Incontinence. Denies: Flank Pain Musculoskeletal: Reports: No Symptoms Skin: Denies: Cyanosis, Jaundice, Mottled, Pallor, Diaphoresis Neurological: Denies: Syncope, Difficulty Walking (uses walker vs wheel chair but no change), Weakness, Change in Speech Psychiatric: Denies: Agitation, Anxiety ED EXAM, GENERAL - Physical Exam Exam: See Below Exam Limited By: No Limitations General Appearance: Alert, WD/WN, No Apparent Distress Eye Exam: Bilateral Eye: EOMI, Normal Inspection, PERRL Ears: Normal External Exam, Normal Canal, Hearing Grossly Normal, Normal TMs Nose: Normal Inspection, No Blood Throat/Mouth: Normal Inspection, Normal Lips, Normal Oropharynx, Normal Voice, No Airway Compromise Head: Atraumatic, Normocephalic Neck: Normal Inspection, Full Range of Motion Respiratory/Chest: No Respiratory Distress, No Accessory Muscle Use, Rhonchi ( mild transient; mostly clear), Other (audible loose rhonchi sounds frequently in airway but not on auscultation). No: Wheezing, Stridor Cardiovascular: Regular Rate, Rhythm, No Murmur GI/Abdominal: Normal Bowel Sounds, Soft, Non-Tender, No Organomegaly Back Exam: No: CVA Tenderness (L), CVA Tenderness (R) Extremities: Normal Inspection, Non-Tender, No Pedal Edema Neurological: Alert, Oriented Psychiatric: Normal Affect, Normal Mood Skin Exam: Warm, Dry, Intact, Normal Color, No Rash Course - Vital Signs Last Recorded V/S: Last Vital Signs Temp 98.7 F 10/08/17 09:21 Pulse 79 10/08/17 10:49 Resp 17 10/08/17 10:49 BP 105/62 10/08/17 10:49 Pulse Ox 96 10/08/17 10:49 - Orders/Labs/Meds Orders: Active Orders 24 hr Category Date Time Status Chest 1V Frontal [CR] Stat Exams 10/08/17 09:20 Taken UA W/MICROSCOPIC [URIN] Stat Lab 10/08/17 10:15 Ordered Labs: Laboratory Tests 10/08/17 10/08/17 10/08/17 Range/Units 09:45 09:45 10:15 WBC 7.5 (5.0-10.0) 10^3/uL RBC 4.31 L (4.50-6.00) 10^6/uL Hgb 12.3 L D (13.0-17.0) g/dL Hct 37.0 L (40.0-52.0) % MCV 86.0 D (82.0-92.0) fL MCH 28.7 (27.0-31.0) pg MCHC 33.3 (32.0-36.0) g/dL RDW 15.4 H (11.5-14.5) % Plt Count 114 L (150-300) 10^3/uL MPV 6.3 L (7.4-10.4) fL Neut % (Auto) 73.1 H (50.0-70.0) % Lymph % (Auto) 14.3 L (20.0-40.0) % [place] % (Auto) 8.4 H (2.0-8.0) % Eos % (Auto) 3.4 H (1.0-3.0) % Baso % (Auto) 0.8 (0.0-1.0) % Neut # (Auto) 5.4 (2.5-7.0) 10^3/uL Lymph # (Auto) 1.1 (1.0-4.0) 10^3/uL [place] # (Auto) 0.6 (0.1-0.8) 10^3/uL Eos # (Auto) 0.3 (0.1-0.3) 10^3/uL Baso # (Auto) 0.1 (0.0-0.1) 10^3/uL Sodium 141 (136-145) mmol/L Potassium 6.7 H D (3.3-5.3) mmol/L Chloride 108 (98-115) mmol/L Carbon Dioxide 23.5 (21.0-32.0) mmol/L BUN 60 H* (6-25) mg/dL Creatinine 1.59 H (0.51-1.17) mg/dL Est Cr Clr Drug Dosing 38.11 mL/min Estimated GFR (MDRD) 43 mL/min Glucose 195 H (70-110) mg/dL Calcium 9.1 (8.7-10.3) mg/dL Specimen Type Urinblad Urine Color Yellow (YELLOW) Urine Appearance Slightly cloudy H (CLEAR) Urine pH 5.0 (5.0-9.0) Ur Specific [place] 1.020 (1.005-1.030) Urine Protein >=300 H (NEGATIVE) mg/dL Urine Glucose (UA) Negative (NEGATIVE) mg/dL Urine Ketones Negative (NEGATIVE) mg/dL Urine Occult Blood Small H (NEGATIVE) Urine Nitrite Negative (NEGATIVE) Urine Bilirubin Negative (NEGATIVE) Urine Urobilinogen 0.2 (0.2-1.0) E.U./dL Ur Leukocyte Esterase Negative (NEGATIVE) Urine RBC 5-10 H /HPF Urine WBC 0-5 /HPF Ur Epithelial Cells Few /LPF Urine Bacteria Few (NONE TO FEW) /HPF Meds: Medications Discontinued Medications Generic Name Dose Route Start Last Admin Trade Name Freq PRN Reason Stop Dose Admin Sodium Polystyrene Sulfonate 15 gm 10/08/17 11:05 10/08/17 11:12 Kayexalate PO 10/08/17 11:06 15 gm ONETIME ONE Administration - Re-Assessments/Exams Free Text/Narrative Re-Assessment/Exam: 10/08/17 11:15 Patient has been stable throughout ER course. CXR and UA clear. CBC okay. Hyperkalemia treated with Kayexalate and will follow up with lab in [place] tomorrow as discussed with Della Choi NP. Departure - Departure Time of Disposition: 11:12 Disposition: DC/Tfer to SNF 03 Condition: Fair Clinical Impression: Hyperkalemia Acute bronchitis Qualifiers: Bronchitis organism: unspecified organism Qualified Code(s): J20.9 - Acute bronchitis, unspecified - Discharge Information Referrals: Christy Brink MD [Primary Care Provider] - Forms: ED Department Discharge Additional Instructions: 1. Take Z-pack as directed. 2. Recheck BMP tomorrow and follow up with PCP. - My Orders Last 24 Hours: My Active Orders 10/08/17 09:20 Chest 1V Frontal [CR] Stat 10/08/17 10:15 UA W/MICROSCOPIC [URIN] Stat - Assessment/Plan Last 24 Hours: My Active Orders 10/08/17 09:20 Chest 1V Frontal [CR] Stat 10/08/17 10:15 UA W/MICROSCOPIC [URIN] Stat
[2017-10-08 10:50] VITALS: BP 105/62
[2017-10-08] MEDS: Sodium Polystyrene Sulfonate 15 GM/60 ML Susp 60 ML Bot PO ONE (11:12)
== END 2017-10-08 12:30 ==
LOC: KA.ED 09:05
DX: J20.9 Acute bronchitis, unspecified (principal); E87.5 Hyperkalemia; I11.0 Hypertensive heart disease with heart failure; I50.9 Heart failure, unspecified; E11.40 Type 2 diabetes mellitus with diabetic neuropathy, unspecified; F32.9 Major depressive disorder, single episode, unspecified; D64.9 Anemia, unspecified; Z87.891 Personal history of nicotine dependence; Z79.01 Long term (current) use of anticoagulants; Z79.899 Other long term (current) drug therapy; Z79.4 Long term (current) use of insulin; Z79.82 Long term (current) use of aspirin; Z88.8 Allergy status to other drugs, medicaments and biological substances
CPT/HCPCS: 36415; 71045; 80048; 81001; 85025; 99283; 99285; A9270-GY

== ENCOUNTER 2018-08-25 13:52 | Emergency (ER) | payer MEDICARE, MEDICAID ==
--- NOTE | 2018-08-25 14:08 | EDM.PDOC ---
ED HPI GENERAL MEDICAL PROBLEM - General Stated Complaint: chest pain, dyspnea, hypoxia Time Seen by Provider: 08/25/18 13:55 Source of Information: Reports: Patient, EMS, [facility] Records History Limitations: Reports: No Limitations - History of Present Illness INITIAL COMMENTS - FREE TEXT/NARRATIVE: Patient presents via ambulance from [facility] with report of chest pain and oxygen desaturation. His sats were in the 70's which improved to 80's on 4 liters via nc. Patient had just finished eating lunch and was noted to be more confused and decreased LOC. He said he had chest pain 10/10 so they gave a nitro. Pain improved to 2/10 and completely resolved after second nitro. This all started at 1240. Patient is now completely alert, pain-free and sats 95% on 4 liters nc. He is usually on oxygen 3 liters at baseline. - Related Data Allergies Allergy/AdvReac Type Severity Reaction Status Date / Time fluticasone propionate Allergy unknown Verified 08/25/18 14:14 [From Advair Diskus] rosuvastatin calcium Allergy unknown Verified 08/25/18 14:14 [From Crestor] salmeterol xinafoate Allergy unknown Verified 08/25/18 14:14 [From Advair Diskus] [id number] Reductase Allergy Other Verified 08/25/18 14:14 Inhibitor Home Meds: Home Meds Albuterol/Ipratropium [DuoNeb 3.0-0.5 MG/3 ML] 3 ml INH BID PRN 05/28/13 [ History] Carvedilol [Coreg] 12.5 mg PO BID 05/28/13 [History] Docusate Sodium [Colace] 100 mg PO BID PRN 05/28/13 [History] Gabapentin [Neurontin] 600 mg PO TID 05/28/13 [History] Sertraline [Zoloft] 200 mg PO DAILY 05/28/13 [History] traMADol [Ultram] 50 mg PO BID PRN 05/28/13 [History] Finasteride 5 mg PO DAILY 06/08/17 [History] Insulin Aspart [NovoLOG] 13 unit SUBCUT WITHMEALSANDBED 06/08/17 [History] Iron Ps Cmplx/Vit B12/Fa [Poly-Iron 150 Forte] 1 each PO DAILY 06/08/17 [History ] Menthol [Cough Drops] 2.7 mg MM BID PRN 06/08/17 [History] Multivits,Ca,Minerals/Iron/FA [Thera-Tabs M Caplet] 1 each PO DAILY 06/08/17 [ History] Polyethylene Glycol 3350 [MiraLAX] 17 gm PO DAILY PRN 06/08/17 [History] Simethicone 160 mg PO TIDPC PRN 06/08/17 [History] Tamsulosin [Flomax] 0.4 mg PO BEDTIME 06/08/17 [History] Trolamine Salicylate/Aloe Vera [Aspercreme 10% Cream] 1 applic TOP BID PRN 06/08 [History] Aspirin [Halfprin] 81 mg PO DAILY 06/09/17 [History] [place]-3 Fatty Acids [[place]-3] 1,000 mg PO DAILY 06/09/17 [History] metFORMIN [Glucophage] 1,000 mg PO BIDMEALS 06/09/17 [History] ARIPiprazole [Abilify] 30 mg PO BEDTIME 08/25/18 [History] Acetaminophen [Tylenol Arthritis] 1,300 mg PO BID 08/25/18 [History] Albuterol [Proventil] 0.5 ml INH Q6H PRN 08/25/18 [History] Furosemide [Lasix] 20 mg PO DAILY 08/25/18 [History] Insulin Detemir [Levemir Flextouch] 30 unit SQ BEDTIME 08/25/18 [History] Levothyroxine Sodium [Synthroid] 25 mcg PO DAILY 08/25/18 [History] Loperamide [Imodium] 2 mg PO ASDIRECTED PRN 08/25/18 [History] Nitroglycerin [Nitrostat] 0.4 mg SL ASDIRECTED PRN 08/25/18 [History] Past Medical History HEENT History: Reports: Sinusitis Cardiovascular History: Reports: CAD, Heart Failure, High Cholesterol, Hypertension Respiratory History: Reports: None Gastrointestinal History: Reports: Chronic Constipation, GERD Genitourinary History: Reports: Other (See Below) Other Genitourinary History: diabetic neuropathy Musculoskeletal History: Reports: Arthritis Neurological History: Reports: Neuropathy, Diabetic Psychiatric History: Reports: Depression Endocrine/Metabolic History: Reports: Diabetes, Type II, Obesity/BMI 30+ Hematologic History: Reports: Anemia, Anticoagulation Therapy Dermatologic History: Reports: Other (See Below) Other Dermatologic History: dry patches on elbows - Past Surgical History HEENT Surgical History: Reports: None Cardiovascular Surgical History: Reports: None Respiratory Surgical History: Reports: None Male Surgical History: Reports: None Neurological Surgical History: Reports: None Social & Family History - Family History Family Medical History: Noncontributory HEENT: Reports: None Cardiac: Reports: None Respiratory: Reports: None GI: Reports: None : Reports: None OBGYN: Reports: None Musculoskeletal: Reports: None Neurological: Reports: None Psychiatric: Reports: None Endocrine/Metabolic: Reports: None Hematologic: Reports: None Immunologic: Reports: None Dermatologic: Reports: None Oncologic: Reports: None - Caffeine Use Caffeine Use: Reports: Coffee, Soda ED ROS GENERAL - Review of Systems Review Of Systems: See Below Constitutional: Denies: Fever, Weakness HEENT: Denies: Ear Pain, Throat Pain Respiratory: Reports: Shortness of Breath (did but resolved now), Cough ( occasional, loose). Denies: Wheezing, Hemoptysis Cardiovascular: Reports: Chest Pain (resolved now). Denies: Syncope Endocrine: Reports: No Symptoms GI/Abdominal: Denies: Abdominal Pain, Diarrhea, Vomiting : Reports: Dysuria (couple days). Denies: Flank Pain Musculoskeletal: Reports: No Symptoms Skin: Denies: Cyanosis, Jaundice, Mottled, Pallor, Diaphoresis Neurological: Denies: Confusion, Seizure, Syncope, Trouble Speaking Psychiatric: Denies: Agitation, Anxiety, Confusion ED EXAM, GENERAL - Physical Exam Exam: See Below Exam Limited By: No Limitations General Appearance: Alert, WD/WN, No Apparent Distress Eye Exam: Bilateral Eye: EOMI, Normal Inspection, PERRL Ears: Normal External Exam, Hearing Grossly Normal Nose: Normal Inspection, No Blood Throat/Mouth: Normal Inspection, Normal Lips, Normal Voice, No Airway Compromise Head: Atraumatic, Normocephalic Neck: Normal Inspection, Supple, Non-Tender, Full Range of Motion, Carotid Bruit (right) Respiratory/Chest: No Respiratory Distress, No Accessory Muscle Use, Chest Non- Tender, Rales, Rhonchi (bilat). No: Wheezing, Stridor Cardiovascular: Normal Peripheral Pulses, Regular Rate, Rhythm, No Murmur ( slight) Peripheral Pulses: 1+: Posterior Tibial (L), Posterior Tibial (R), 2+: Carotid ( L), Carotid (R), Radial (L), Radial (R) GI/Abdominal: Normal Bowel Sounds, Soft, Non-Tender, No Organomegaly Back Exam: Normal Inspection, Full Range of Motion. No: CVA Tenderness (L), CVA Tenderness (R) Neurological: Alert, Oriented, Normal Cognition, No Motor/Sensory Deficits Psychiatric: Normal Affect, Normal Mood Skin Exam: Warm, Dry, Intact, Normal Color, No Rash Course - Vital Signs Last Recorded V/S: Last Vital Signs Temp 97.6 F 08/25/18 14:07 Pulse 61 08/25/18 14:07 Resp 20 08/25/18 14:07 BP 147/60 H 08/25/18 14:07 Pulse Ox 95 08/25/18 14:07 - Orders/Labs/Meds Orders: Active Orders 24 hr Category Date Time Status EKG Documentation Completion [RC] ASDIRECTED Care 08/25/18 14:04 Ordered CULTURE URINE [RM] Stat Lab 08/25/18 14:57 Ordered EKG 12 Lead [EK] Routine Ther 08/25/18 14:03 Ordered Labs: Laboratory Tests 08/25/18 08/25/18 08/25/18 Range/Units 14:00 14:00 14:33 WBC 7.60 (5.00-10.00) 10^3/uL RBC 4.48 L (4.50-6.00) 10^6/uL Hgb 14.2 (13.0-17.0) g/dL Hct 41.3 (40.0-52.0) % MCV 92.2 H D (82.0-92.0) fL MCH 31.7 H (27.0-31.0) pg MCHC 34.4 (32.0-36.0) g/dL RDW 15.5 H (11.5-14.5) % Plt Count 109 L (150-400) 10^3/uL MPV 8.9 (7.4-10.4) fL Immature Gran % (Auto) 0.3 (0.0-5.0) % Neut % (Auto) 71.0 H (50.0-70.0) % Lymph % (Auto) 15.9 L (20.0-40.0) % [place] % (Auto) 6.8 (2.0-8.0) % Eos % (Auto) 5.3 H (1.0-3.0) % Baso % (Auto) 0.7 (0.0-1.0) % Immature Gran # (Auto) 0.02 (0.00-0.50) 10^3/uL Neut # (Auto) 5.40 (2.50-7.00) 10^3/uL Lymph # (Auto) 1.21 (1.00-4.00) 10^3/uL [place] # (Auto) 0.52 (0.10-0.80) 10^3/uL Eos # (Auto) 0.40 H (0.10-0.30) 10^3/uL Baso # (Auto) 0.05 (0.00-0.10) 10^3/uL Sodium 143 (136-145) mmol/L Potassium 4.3 D (3.3-5.3) mmol/L Chloride 104 (98-115) mmol/L Carbon Dioxide 30.5 (21.0-32.0) mmol/L Anion Gap 12.8 (5-15) mmol/L BUN 38 H (6-25) mg/dL Creatinine 1.13 (0.51-1.17) mg/dL Est Cr Clr Drug Dosing 50.97 mL/min Estimated GFR (MDRD) > 60 mL/min Glucose 211 H (75 - 99) mg/dL Calcium 8.5 L (8.7-10.3) mg/dL Troponin I 1.41 H* (0.00-0.070) ng/mL B-Natriuretic Peptide 739 H (0-100) pg/mL Specimen Type Urincath Urine Color Light yellow (YELLOW) Urine Appearance Cloudy H (CLEAR) Urine pH 6.0 (5.0-9.0) Ur Specific [place] 1.025 (1.005-1.030) Urine Protein >=300 H (NEGATIVE) mg/dL Urine Glucose (UA) Negative (NEGATIVE) mg/dL Urine Ketones Negative (NEGATIVE) mg/dL Urine Occult Blood Large H (NEGATIVE) Urine Nitrite Negative (NEGATIVE) Urine Bilirubin Negative (NEGATIVE) Urine Urobilinogen 0.2 (0.2-1.0) E.U./dL Ur Leukocyte Esterase Negative (NEGATIVE) Urine RBC >100 H (0-5) /HPF Urine WBC 30-40 H (0-5) /HPF Amorphous Sediment Many H (0/HPF) /HPF Urine Bacteria Many H (NONE TO FEW) /HPF Meds: Medications Discontinued Medications Generic Name Dose Route Start Last Admin Trade Name Juan Daniel PRN Reason Stop Dose Admin Aspirin 324 mg 08/25/18 15:09 08/25/18 15:10 Aspirin PO 08/25/18 15:10 324 mg ONETIME ONE Administration Aspirin Confirm 08/25/18 15:09 08/25/18 15:17 Aspirin Administered 08/25/18 15:10 Not Given Dose 324 mg .ROUTE .STK-MED ONE - Re-Assessments/Exams Free Text/Narrative Re-Assessment/Exam: 08/25/18 14:48 Troponin is 1.41, CBC and BMP okay. EKG shows no significant change from ; no STEMI. Patient remains stable and pain-free. 08/25/18 15:27 I discussed findings and treatment options with patient and he would like to go to [place]. I discussed case with Dr. Durbin (hospitalist) who accepted for transfer. He wants heparin protocol in addition to the aspirin we had given. Patient has been stable and pain-free throughout hospital stay. Departure - Departure Time of Disposition: 15:31 Disposition: DC/Tfer to Acute Hospital 02 Reason for Transfer *Q: Other (cardiology consult) Condition: Good Clinical Impression: NSTEMI (non-ST elevated myocardial infarction), Acute pulmonary edema with congestive heart failure, UTI (urinary tract infection), bacterial Referrals: Christy Brink MD [Primary Care Provider] - - My Orders Last 24 Hours: My Active Orders 08/25/18 14:03 EKG 12 Lead [EK] Routine 08/25/18 14:04 EKG Documentation Completion [RC] ASDIRECTED 08/25/18 14:57 CULTURE URINE [RM] Stat - Assessment/Plan Last 24 Hours: My Active Orders 08/25/18 14:03 EKG 12 Lead [EK] Routine 08/25/18 14:04 EKG Documentation Completion [RC] ASDIRECTED 08/25/18 14:57 CULTURE URINE [RM] Stat
[2018-08-25 14:27] VITALS: BP 147/60
[2018-08-25 14:38] LABS: ANION GAP 12.8 mmol/L (5-15); CHLORIDE,CL 104 mmol/L (98-115); SODIUM,NA 143 mmol/L (136-145)
--- NOTE | 2018-08-25 15:05 | CR ---
[id number] RAD/RAD Chest PA And Lateral EXAM: FRONTAL AND LATERAL CHEST INDICATION: Dyspnea and chest pain. COMPARISON: None. DISCUSSION: There is cardiomegaly with mild to moderate pulmonary edema and small bilateral pleural effusions compatible with congestive heart failure. Mild age-indeterminate compression fracture at the thoracolumbar junction of the spine. IMPRESSION: 1. Mild to moderate congestive heart failure. Aba Love MD 08/25/18 [id number] Thank you for allowing us to participate in the care of your patient.
[2018-08-25] MEDS ORDERED: Aspirin 81 MG Tab.Chew PO ONE (15:09)
[2018-08-25] MEDS ORDERED: Aspirin 81 MG Tab.Chew ONE (15:09)
[2018-08-25] MEDS ORDERED: Heparin Sodium 5,000 Units/ML Vial IVPUSH ONE (15:24)
[2018-08-25] MEDS ORDERED: Heparin Sodium/D5W 25,000 UNITS/250 ML BAG IV SCH (15:32)
== END 2018-08-25 15:53 ==
LOC: KA.ED 13:52
DX: I21.4 Non-ST elevation (NSTEMI) myocardial infarction (principal); I11.0 Hypertensive heart disease with heart failure; I50.1 Left ventricular failure, unspecified; E78.00 Pure hypercholesterolemia, unspecified; N39.0 Urinary tract infection, site not specified; I25.10 Atherosclerotic heart disease of native coronary artery without angina pectoris; E11.40 Type 2 diabetes mellitus with diabetic neuropathy, unspecified; F32.9 Major depressive disorder, single episode, unspecified; B96.89 Other specified bacterial agents as the cause of diseases classified elsewhere; Z88.8 Allergy status to other drugs, medicaments and biological substances; Z79.899 Other long term (current) drug therapy; Z79.82 Long term (current) use of aspirin; Z79.4 Long term (current) use of insulin
CPT/HCPCS: 51702; 71046; 80048; 81001; 83880; 84484; 85025; 87086; 87088; 93005; 96365; 96376; 99284; 99285-25; A9270-GY; J1644